=== PATIENT | male | born 1960 | race Caucasian/White ===

== ENCOUNTER 2024-04-08 20:30 | Emergency (ER) | payer OTHER, SELFPAY ==
[2024-04-08 20:31] VITALS: BMI 26.1
[2024-04-08 20:34] VITALS: BP 128/66
--- NOTE | 2024-04-08 21:37 | ED.GENMED ---
History of Present Illness
General
Chief Complaint: Musculo-Skeletal Complaint
Source: patient
Exam Limitations: none
Time Seen by Provider: 04/08/24 21:24
Travel History
Have you had any contact with someone who has COVID-19?: No
Do you have any symptoms of coronavirus? Fever > 100 degrees, chills, cough, shortness of breath, sore throat, loss of taste or smell, muscle aches, or headache?: No
History of Present Illness
History of Present Illness:
See MDM
Past History
Past History
ED Past Medical History: None
ED Past Surgical History: Cardiac
Social History
Tobacco: Non-smoker
Alcohol: None
Phy Exam
Physical Exam
Physical Exam:
See MDM
Course
Orders/Labs/Results
Orders:
Orders
04/08/24 20:41
CR Ribs-left 3 Vw W/pa Chest Urgent
Reason For Exam: injury, rib pain
04/08/24 21:36
Oxycodone/Acetaminophen [Percocet 5/325] 1 tablet PO NOW STA
Vital Signs
Initial and Last Documented VS:
Initial Vital Signs
Temp Pulse Resp BP Pulse Ox
98.5 F 60 16 128/66 98
04/08/24 20:34 04/08/24 20:34 04/08/24 20:34 04/08/24 20:34 04/08/24 20:34
Last Documented Vital Signs
Temp Pulse Resp BP Pulse Ox
98.5 F 60 16 128/66 98
04/08/24 20:34 04/08/24 20:34 04/08/24 20:34 04/08/24 20:34 04/08/24 20:34
MDM/Problems Addressed
Differential Diagnosis Includes:
HPI and MDM Narrative:
63-year-old male presenting with left posterior rib pain. Patient was doing yard work and he fell backwards and landed on a rock. Patient complaining of pain ever since. He denies trouble breathing. Pain was worse when he laid down on his back
Physical exam
General: Well appearing and non-toxic
HEENT: protecting airway
Neck: appears supple
CV: No evidence of cyanosis
Resp: No accessory muscle use. Lungs clear
Back: Tenderness to left posterior 11th rib
Abd: Non-distended
Extremities: No deformities
Neuro: alert
Psych: Normal affect
Skin: Intact
Problems Addressed including Acute and Chronic Conditions affecting care:
1. Rib fracture
Acuity: acute
Prognosis: stable
Details: Chest x-ray consistent with fracture to left rib. Will start Percocet for pain control. Discussed return precautions
Differential Diagnosis (but not limited to):
Testing considered:
Drug therapy (if applicable): OTC meds, please see d/c instruction regarding Rx drugs
Amount and/or Complexity of Data Reviewed
Clinical info obtained from: Patient
External data reviewed: N/A
Labs I independently reviewed (but not limited to): N/A
Radiology: X-ray independently reviewed: Chest x-ray consistent with left rib fracture
Pulse Ox: not hypoxic
EKG independently reviewed: N/A
Dimpling Machine Operator: N/A
Critical Care: N/A
Risk of Complication:
Social Determinants of health: Good social support
Discussed with other providers: N/A
Escalation of Care includes Admit/Obs: After being observed in the Emergency Department, pt stable for discharge.
Occasional wrong word or 'sound a like' substitutions may have occurred due to the inherent limitations of voice recognition software. Read the chart carefully and recognize, using context, where substitutions have occurred.
*Critical Care Note
Total Time (30-74mins, 75-104mins- exclusive of procedures): Not Applicable
ED Attending Note
-
Portions of this chart may have been created with voice recognition software.� Occasional wrong word or��sound alike� substitutions may have occurred due to the inherent limitations of voice recognition software.
Discharge Plan
Departure
Patient Disposition: Home (Routine Discharge)
Date of Disposition: 04/08/24
Time of Disposition: 21:37
Patient with high blood pressure during this ER visit?: No
Discharge Problem:
Left rib fracture
Instructions: Rib Fracture
Prescriptions:
New
oxycodone-acetaminophen [Percocet] 5-325 mg Tablet
1 tab PO HSPRN PRN (Reason: pain) Qty: 14 0RF
Activity Restrictions/Additional Instructions:
Please return for any worsening symptoms.
You may return at any time if you have further concerns.
Please follow up with your doctor at the first available appointment, preferably this week.
Please take the Percocet at nighttime as needed for pain. Throughout the day, please take Motrin.
You were given a prescription for narcotics. If you require this pain medicine, please take a daily [id number] stool softener to avoid constipation.
Thank you for choosing [facility].
Interventions
Interventions:
*Risk Screen - Suicide Last Done: 04/08/24 20:34
*General Assessment Last Done: 04/08/24 20:34
*Neglect/Abuse Screening Last Done: 04/08/24 20:34
Discharge Date and Time
Print Language: AU[place]
[2024-04-08] MEDS: PERCOCET 5/325 1 TABLET PO (21:51)
[2024-04-08 21:55] VITALS: BP 126/100
== END 2024-04-08 22:23 | disposition home or self-care (01) ==
LOC: EMR 20:30
PROVIDERS: EMERGENCY PHYSICIAN Student in an Organized Health Care Education/Training Program
DX: S22.32XA Fracture of one rib, left side, initial encounter for closed fracture (principal); W18.39XA Other fall on same level, initial encounter; Y93.H2 Activity, gardening and landscaping
CPT/HCPCS: 99283; 71101